=== PATIENT | male | born 1940 | race Caucasian/White ===

== ENCOUNTER → 2018-07-23 | Outpatient (CLI) | payer OTHER ==
[~2018-07-23] MED LIST: ASPIRIN81 M1 PO; ATORVASTATIN CA40 MG PO; DOXAZOSIN MESYLA4 MG PO; FINASTERIDE5 MG PO; FORMOTEROL PO; METOPROLOL SUCC25 MG PO; OMEPRAZOLE40 MG PO; [UNRECOGNIZED DRUG - OTHER] PO
--- NOTE | 2018-07-23 11:43 | Diagnostic Imaging Report ---
EXAMINATION: CHEST 2 VIEWS INDICATION: Abnormal tumor marker. COMPARISON: None FINDINGS: TUBES and LINES: None. LUNGS: Lungs are well inflated. Ill-defined density in the right mid lung could be due to scarring. There is no evidence of pneumonia or pulmonary edema. PLEURA: No pleural effusion or pneumothorax. HEART AND MEDIASTINUM: Likely small calcified hilar lymph nodes. The heart is normal in size. BONES AND SOFT TISSUES: No acute osseous lesion. Soft tissues are unremarkable. UPPER ABDOMEN: No free air under the diaphragm. IMPRESSION: Ill-defined density in the right mid lung could be due to scarring. CT scan of the chest is recommended for further evaluation. Signed by: Dr. Mele Bansal M.D. on 07/23/2018 11:40 AM
== END ==
LOC: RAD 11:00
PROVIDERS: ATTEND Urology
DX: R97.20 Elevated prostate specific antigen [PSA] (principal)
CPT/HCPCS: 71046